=== PATIENT | female | born 1955 | race African-American/Black ===

== ENCOUNTER 2016-07-25 04:38 | Emergency (ER) | payer SELFPAY ==
[~2016-07-25] VITALS: Ht 165.1 cm; Wt 78.0 kg
[2016-07-25] MEDS ORDERED: SODIUM CHLORIDE 0.9% 500 ML IV ONE (06:23)
[2016-07-25 06:45] LABS: BASOPHILS % 0.6 % (0.0-2.0); DIFFERENTIAL COMMENT 0; HEMATOCRIT. 35.5 % (36.0-48.0); HEMOGLOBIN. 11.8 g/dL (12.0-16.0); LYMPHOCYTES % 46.3 % (20.0-50.0); MEAN CORPUSCULAR HGB CONC 33.3 g/dL (31.0-37.0); MEAN CORPUSCULAR VOLUME 72.2 fL (81.0-99.0); MEAN PLATELET VOLUME 8.2 fl (7.4-10.4); MONOCYTES % 10.2 % (2.0-8.0); NEUTROPHILS % 40.9 % (40.0-76.0); PLATELET 203 x1000/uL (130-400); RED BLOOD CELL COUNT 4.92 mill/uL (4.2-5.4); WHITE BLOOD COUNT 4.3 x1000/uL (4.5-11.0)
[2016-07-25 06:49] LABS: PROTHROMBIN TIME 10.7 sec
[2016-07-25 07:00] LABS: ALANINE AMINOTRANSFERASE 21 IU/L (13-61); ALBUMIN 3.5 g/dL (3.4-5.0); ANION GAP 12; CALCIUM 8.9 mg/dL (8.5-10.1); CARBON DIOXIDE 29 mEq/L (21-32); CHLORIDE 105 mEq/L (98-107); INDEX HEMOLYSI 1 (1-3); INDEX ICTERIC 1 (1-4); INDEX LIPEMIC 1 (1-3); LIPASE 136 IU/L (73-393); MAGNESIUM 2.3 mg/dL (1.8-2.4); NT PRO B-TYPE NATRIURETIC PEP 41 pg/mL (5-125); TROPONIN I < 0.02 ng/mL (0.00-0.04); UREA NITROGEN BLOOD 11 mg/dL (7-21); eGFR > 60 mL/min (>60)
[2016-07-25 07:30] LABS: CLARITY URINE CLEAR (CLEAR); COLOR URINE YELLOW (YELLOW); GLUCOSE URINE NEGATIVE (NEGATIVE); KETONES URINE NEGATIVE (NEGATIVE); LEUKOCYTE ESTERASE URINE NEGATIVE (NEGATIVE); NITRITE URINE NEGATIVE (NEGATIVE); OCCULT BLOOD URINE NEGATIVE (NEGATIVE); PROTEIN URINE NEGATIVE (NEGATIVE); SPECIFIC GRAVITY URINE 1.018 (1.005-1.030); UROBILINOGEN URINE 0.2 E.U./dL (0.2-1.0)
[2016-07-25 07:53] VITALS: BP 141/77
== END 2016-07-25 08:44 | disposition home or self-care (01) ==
LOC: ER 04:39
DX: I10 Essential (primary) hypertension (principal); R53.81 Other malaise; R42 Dizziness and giddiness
CPT/HCPCS: 36415; 70450; 71010; 80053; 81003; 83690; 83735; 83880; 84484; 85025; 85610; 93005; 99285; J7040; Z7610

== ENCOUNTER 2018-07-25 08:44 | Emergency (ER) | payer OTHER ==
[~2018-07-25] VITALS: Ht 167.6 cm; Wt 72.0 kg
[2018-07-25 10:06] LABS: HEMATOCRIT. 35.5 % (36.0-48.0); HEMOGLOBIN. 11.6 g/dL (12.0-16.0); MEAN CORPUSCULAR HEMOGLOBIN 23.9 pg (28.0-32.0); MEAN PLATELET VOLUME 8.3 fl (7.4-10.4); PLATELET 205 x1000/uL (130-400); RED BLOOD CELL COUNT 4.87 mill/uL (4.2-5.4); RED CELL DISTRIBUTION WIDTH 14.2 % (11.6-14.6)
[2018-07-25 10:09] LABS: CHLORIDE 106 mEq/L (98-107)
[2018-07-25] MEDS ORDERED: KETOROLAC 30MG/ML VIAL IV ONE (10:45)
[2018-07-25] MEDS ORDERED: ASPIRIN 325MG EC TABLET PO ONE (10:45)
[2018-07-25 11:09] LABS: PLATELET ESTIMATE NORMAL
[2018-07-25 13:11] VITALS: BP 138/59
== END 2018-07-25 14:00 | disposition short-term general hospital (02) ==
LOC: ER 08:44
DX: R07.89 Other chest pain (principal); G47.00 Insomnia, unspecified; I10 Essential (primary) hypertension
CPT/HCPCS: 36415; 71045; 80053; 83880; 84484; 85025; 93005; 96374; 99285; J1885; Z7610

== ENCOUNTER 2022-01-30 10:17 | Emergency (ER) | payer OTHER ==
[~2022-01-30] VITALS: Ht 167.6 cm; Wt 89.0 kg
[2022-01-30] MEDS ORDERED: IBUPROFEN 400MG TABLET PO ONE (12:45)
[2022-01-30] MEDS ORDERED: ACETAMINOPHEN 325MG TABLET PO ONE (12:45)
[2022-01-30 13:00] VITALS: BP 137/61
== END 2022-01-30 15:40 | disposition home or self-care (01) ==
LOC: ER 10:17
DX: M79.604 Pain in right leg (principal); M79.605 Pain in left leg; I10 Essential (primary) hypertension
CPT/HCPCS: 93970; 99284